=== PATIENT | female | born 1985 | race Caucasian/White ===

== ENCOUNTER 2020-10-08 14:15 | Emergency (ER) | payer MEDICARE, OTHER ==
[2020-10-08] MEDS ORDERED: BACTRIM DS TAB1 EACH PO (15:05)
== END 2020-10-08 15:21 | disposition home or self-care (01) ==
LOC: ER1 14:15
DX: L02.411 Cutaneous abscess of right axilla (principal); Z90.49 Acquired absence of other specified parts of digestive tract; Z86.16 Personal history of COVID-19; Z79.899 Other long term (current) drug therapy
CPT/HCPCS: 10060; 99282

== ENCOUNTER 2021-10-23 21:09 | Emergency (ER) | payer MEDICARE ==
[~2021-10-23 21:09] MED LIST: BACTRIM DS TAB1 EACH PO
[2021-10-24 00:41] LABS: HEMOGLOBIN 15.4 gm/dl (12.3-15.3); RED BLOOD COUNT 5.12 M/UL (4.00-5.10); WHITE BLOOD COUNT 10.5 K/UL (4.5-11.0)
[2021-10-24 01:08] LABS: BUN/CREATININE RATIO 18 (0-10)
== END 2021-10-24 03:30 | disposition home or self-care (01) ==
LOC: ER1 21:09
PROVIDERS: Family Medicine
DX: E16.2 Hypoglycemia, unspecified (principal); F41.9 Anxiety disorder, unspecified; Z90.49 Acquired absence of other specified parts of digestive tract; Z88.2 Allergy status to sulfonamides
CPT/HCPCS: 80053; 80061; 82550; 82553; 82962; 84484; 84681; 85025; 99284